=== PATIENT | male | born 1970 | race African-American/Black ===

== ENCOUNTER 2021-03-28 03:02 | Emergency (ER) | payer OTHER ==
[2021-03-28 03:32] VITALS: BP 144/89; PULSE 98; TEMP 98.6; BMI 33.3
[2021-03-28] MEDS ORDERED: SODIUM CHLORIDE 0.9% 500 ML INFUS.BAG IV ONE (03:51)
[2021-03-28] MEDS ORDERED: METOCLOPRAMIDE HCL INJECTION 10 MG/2 ML VIAL IVPUSH ONE (03:51)
[2021-03-28] MEDS ORDERED: ACETAMINOPHEN 325 MG TABLET (FP) PO ONE (03:51)
[2021-03-28] MEDS ORDERED: ACETAMINOPHEN 325 MG TABLET (FP) ONE (03:55)
[2021-03-28] MEDS ORDERED: METOCLOPRAMIDE HCL INJECTION 10 MG/2 ML VIAL ONE (03:56)
[2021-03-28] MEDS ORDERED: HYDROCHLOROTHIAZIDE 50 MG TABLET PO ONE (04:21)
[2021-03-28] MEDS ORDERED: HYDROCHLOROTHIAZIDE 25 MG TABLET (FP) ONE (04:29)
== END 2021-03-28 04:53 | disposition home or self-care (01) ==
LOC: JER 03:02
PROC: 3E033NZ Introduction of Analgesics, Hypnotics, Sedatives into Peripheral Vein, Percutaneous Approach (ICD-10-PCS; principal; 2021-03-28)
DX: R51.9 Headache, unspecified (principal)
CPT/HCPCS: 70450-TC; 99285-25

== ENCOUNTER 2022-10-25 16:53 | Emergency (ER) | payer OTHER ==
[2022-10-25 17:17] VITALS: BP 126/82; PULSE 96; RESP 16; TEMP 98; BMI 38.0
[2022-10-25] MEDS ORDERED: ACETAMINOPHEN 1000 MG/100 ML BAG IVPB ONE (17:59)
[2022-10-25] MEDS ORDERED: ACETAMINOPHEN INJECTION 100 ML IVPB ONE (18:08)
[2022-10-25 19:01] LABS: BASO % 1.4 % (0-2.0); EOS % 2.8 % (0-4.5); HEMATOCRIT 36.3 % (35.4-49); HEMOGLOBIN 12.4 GM/dL (11.7-16.9); LYMPH % 38.4 % (8-40); MCH 29.2 pg (25.7-33.7); MCHC 34.1 g/dl (32.0-35.9); MEAN CELL VOLUME 85.5 fl (80-96); MEAN PLT VOLUME 6.7 fl (7.5-11.1); MONO % 11.5 % (3.8-10.2); NEUT % 45.9 % (42.8-82.8); PLATELET COUNT 492 10^3/uL (134-434); RBC 4.25 M/mm3 (4.00-5.60); RDW 13.4 % (11.9-15.9); WHITE BLOOD COUNT 7.8 K/mm3 (4.0-10.0)
[2022-10-25 19:10] LABS: INR 1.18 (0.83-1.09); PROTHROMBIN TIME (PATIENT) 13.6 SEC (9.7-13.0)
[2022-10-25 19:12] LABS: ACTIVATED PTT 33.6 SECONDS (25.2-36.5)
[2022-10-25 19:24] LABS: ALBUMIN 3.5 g/dl (3.4-5.0); BLOOD UREA NITROGEN 17.8 mg/dL (7-18); CALCIUM 9.3 mg/dL (8.5-10.1)
[2022-10-25 19:27] LABS: CREATININE 1.2 mg/dL (0.55-1.3); PHOSPHOROUS 3.8 mg/dL (2.5-4.9)
[2022-10-25 19:29] LABS: BILIRUBIN,TOTAL 0.4 mg/dL (0.2-1); TOT PROT 6.8 g/dl (6.4-8.2)
== END 2022-10-25 21:43 | disposition home or self-care (01) ==
LOC: JER 16:53
PROC: 3E033GC Introduction of Other Therapeutic Substance into Peripheral Vein, Percutaneous Approach (ICD-10-PCS; principal; 2022-10-25)
DX: R42 Dizziness and giddiness (principal)
CPT/HCPCS: 0241U-QW; 36415; 71046-TC-FY; 80053; 82550; 82553; 83735; 84100; 84484; 85025; 85379; 85610; 85730; 93005; 93010; 99285-25

== ENCOUNTER 2022-11-02 12:25 | Emergency (ER) | payer OTHER ==
[2022-11-02 12:47] VITALS: BP 124/81; PULSE 83; RESP 18; TEMP 98.2; BMI 38.7
== END 2022-11-02 17:38 | disposition home or self-care (01) ==
LOC: JER 12:25 → JERFT 12:25
DX: S09.90XA Unspecified injury of head, initial encounter (principal); M54.2 Cervicalgia; W00.0XXA Fall on same level due to ice and snow, initial encounter
CPT/HCPCS: 70450-TC; 72125-TC; 99284-25

== ENCOUNTER 2023-07-18 18:08 | Emergency (ER) | payer OTHER ==
[2023-07-18 18:17] VITALS: BP 119/75; PULSE 90; RESP 18; TEMP 98; BMI 29.0
[2023-07-18] MEDS ORDERED: AMOX TR/POT CLAV 875MG/125MG TABLETS (FP) PO ONE (20:02)
[2023-07-18] MEDS ORDERED: AMOX TR/POT CLAV 875MG/125MG TABLETS (FP) ONE (20:10)
== END 2023-07-18 20:13 | disposition home or self-care (01) ==
LOC: JERFT 18:08
DX: S01.351A Open bite of right ear, initial encounter (principal); W50.3XXA Accidental bite by another person, initial encounter; Y93.89 Activity, other specified; Y92.009 Unspecified place in unspecified non-institutional (private) residence as the place of occurrence of the external cause
CPT/HCPCS: 99283-25